=== PATIENT | female | born 1935 | race Caucasian/White ===

== ENCOUNTER 2017-05-19 11:26 | Day surgery (SDC) | payer MEDICARE ==
[~2017-05-19 11:26] MED LIST: Midazolam 1 MG/ML 2 ML SDV ONE; Propofol 200 MG/20 ML SDV ONE; fentaNYL 100 MCG/2 ML SDV ONE
[2017-05-19] MEDS ORDERED: Sodium Chloride 0.9% 5 ML Syringe FLUSH PRN (11:30)
[2017-05-19] MEDS ORDERED: Lactated Ringers 1,000 ML IV SCH (11:30)
[2017-05-19] MEDS ORDERED: Propofol 200 MG/20 ML SDV IV ONE (12:27)
[2017-05-19] MEDS ORDERED: ePHEDrine/Normal Saline 50 MG/5 ML Syringe IV ONE (12:27)
[2017-05-19] MEDS ORDERED: fentaNYL 100 MCG/2 ML SDV IV ONE (12:27)
[2017-05-19] MEDS ORDERED: Midazolam 1 MG/ML 2 ML SDV IV ONE (12:27)
--- NOTE | 2017-05-19 12:31 | PCM.PN ---
- General Info Date of Service: 05/19/17 - Review of Systems Systems Review Comment:: 81 y/o female referred for colonoscopy. She has had a Right Hemicolectomy for Carcinoma. Her last colonoscopy was 3 years ago. She is medically stable to proceed. She understands indications options and risks and she agrees to proceed. - Patient Data Vitals - Most Recent: Last Vital Signs Temp 97.2 F 05/19/17 11:35 Pulse 132 H 05/19/17 11:35 Resp 16 05/19/17 11:35 BP 131/96 H 05/19/17 11:35 Pulse Ox 93 L 05/19/17 11:35 Weight - Most Recent: 54.885 kg Med Orders - Current: Current Medications Lactated Ringer's (Ringers, Lactated) 1,000 mls @ 50 mls/hr IV ASDIRECTED NAKUL Last Admin: 05/19/17 12:00 Dose: 50 mls/hr Sodium Chloride (Syrex Flush) 5 ml FLUSH Q8HR PRN PRN Reason: Keep Vein Open Discontinued Medications Fentanyl (Sublimaze) Confirm Administered Dose 100 mcg .ROUTE .STK-MED ONE Stop: 05/19/17 11:26 Midazolam HCl (Versed 1 Mg/Ml) Confirm Administered Dose 2 mg .ROUTE .STK-MED ONE Stop: 05/19/17 11:26 Propofol (Diprivan 20 Ml) Confirm Administered Dose 200 mg .ROUTE .STK-MED ONE Stop: 05/19/17 11:26 - Problem List Review Problem List Initiated/Reviewed/Updated: Yes - My Orders Last 24 Hours: My Active Orders 05/19/17 11:30 Patient to Empty Bladder [RC] ASDIRECTED Peripheral IV Care [RC] . DIRECTED Verify Patient Consent Obtain [RC] ASDIRECTED Lactated Ringers [Ringers, Lactated] 1,000 ml IV ASDIRECTED Sodium Chloride 0.9% [Syrex Flush] 5 ml FLUSH Q8HR PRN Peripheral IV Insertion Adult [OM.PC] Routine 05/19/17 Breakfast Nothing Per Oral Diet [DIET] - Assessment Assessment:: History of Colon Ca - Plan Plan:: Colonoscopy
--- NOTE | 2017-05-19 13:08 | PCM.OPNOTE ---
- General Post-Op/Procedure Note Date of Surgery/Procedure: 05/19/17 Operative Procedure(s): Colonoscopy Findings: Moderate Sigmoid Diverticulosis External hemorrhoids Pre Op Diagnosis: History of Colon Ca Post-Op Diagnosis: Diverticulosis. Hemorrhoids Anesthesia Technique: MAC Primary Surgeon: Stewart Kong Pathology: none Output, Urine Amount: 0 EBL in mLs: 0 Complications: None Condition: Good
[2017-05-19 15:16] VITALS: BP 121/68
--- NOTE | 2017-05-20 08:04 | OR ---
DATE OF SURGERY: 05/19/2017 SURGEON: Stewart Kong MD PREOPERATIVE DIAGNOSIS: History of colon cancer. POSTOPERATIVE DIAGNOSIS: History of colon cancer, diverticulosis, external hemorrhoids. OPERATION PERFORMED: Colonoscopy. INDICATIONS FOR SURGERY: This 81-year-old female, who has had a previous right hemicolectomy for colon cancer comes for surveillance colonoscopy. She is medically stable to proceed and has not had any recent significant change in her bowel pattern. FINDINGS: The patient has had a previous right hemicolectomy. Her ileocolonic anastomosis in the transverse colon appears normal. It is healthy and widely patent. There is no visible lesions or abnormalities seen there. The patient has a moderate degree of sigmoid diverticulosis, but this does not appear to be acutely inflamed or otherwise complicated. She also has moderate-sized external hemorrhoids. PROCEDURE IN DETAIL: The patient was taken to the operating room. She was given intravenous sedation and with her in the left lateral decubitus position, digital rectal exam was performed showing no rectal masses. The Olympus colonoscope is inserted into the rectum. Retroflexed examination of the rectal canal is performed. The scope was then carefully advanced under direct visualization through the entire length of the remaining colon to the ileocolonic anastomosis. This anastomosis was carefully examined and the distal small bowel also examined. The scope was then slowly withdrawn, sequentially re- examining the colonic segments until the entire remaining colon is examined. With no sign of any bleeding or other complication, the scope was removed and the patient was taken from the operating room in satisfactory condition. ESTIMATED BLOOD LOSS: Zero. COMPLICATIONS: None. PROGNOSIS: Good. /[id number]/MODL
== END 2017-05-19 14:30 | disposition home or self-care (01) ==
LOC: KA.SDS 11:26
PROVIDERS: ATTEND Surgery
DX: Z12.11 Encounter for screening for malignant neoplasm of colon (principal); K57.30 Diverticulosis of large intestine without perforation or abscess without bleeding; K64.4 Residual hemorrhoidal skin tags; Z85.038 Personal history of other malignant neoplasm of large intestine; Z90.49 Acquired absence of other specified parts of digestive tract; I10 Essential (primary) hypertension; E55.9 Vitamin D deficiency, unspecified; Z88.1 Allergy status to other antibiotic agents; Z88.2 Allergy status to sulfonamides; Z88.8 Allergy status to other drugs, medicaments and biological substances; Z91.018 Allergy to other foods; Z79.899 Other long term (current) drug therapy; Z90.710 Acquired absence of both cervix and uterus; Z98.890 Other specified postprocedural states
CPT/HCPCS: G0105; J2250; J2704; J3010; J7120; 00810